=== PATIENT | female | born 1980 | race Caucasian/White ===

== ENCOUNTER 2016-07-24 03:35 | Emergency (ER) | payer MEDICAID ==
[~2016-07-24] VITALS: Ht 152.4 cm; Wt 65.5 kg
[2016-07-24 03:53] VITALS: BP 128/67
--- NOTE | 2016-07-24 05:05 | NUR ---
PT TAKEN TO BED 4
--- NOTE | 2016-07-24 05:10 | NUR ---
PATIENT PRESENTS TO ED WITH PAINFUL URINATION;STRANGE;LOW BACK PAIN X 2 DAYS . PT DENIES N/V/D; SKIN IS PINK/WARM/DRY; AAOX4 WITH EVEN AND STEADY GAIT; LUNGS CLEAR BL; HR EVEN AND REGULAR; PT DENIES ANY FEVER, CP, SOB, OR COUGH AT THIS TIME; PATIENT STATES PAIN OF 10/10 AT THIS TIME; VSS; PATIENT POSITIONED FOR COMFORT; HOB ELEVATED; BEDRAILS UP X2; BED DOWN. ER MD MADE AWARE OF PT STATUS.
--- NOTE | 2016-07-24 05:18 | NUR ---
Dr. Richmond evaluating patient at bedside.
[2016-07-24] MEDS ORDERED: KETOROLAC 60 MG/2 ML VIAL IM ONE (05:20)
[2016-07-24] MEDS ORDERED: PHENAZOPYRIDINE 100 MG TAB PO ONE (05:20)
[2016-07-24] MEDS ORDERED: SULFAMETH/TRIMETH DS 800/160MG 1 TAB PO ONE (05:20)
[2016-07-24 05:55] VITALS: BP 119/71
--- NOTE | 2016-07-24 05:55 | NUR ---
Patient discharged with v/s stable. Written and verbal after care instructions given and explained. Patient alert, oriented and verbalized understanding of instructions. Ambulatory with steady gait. All questions addressed prior to discharge. ID band removed. Patient advised to follow up with PMD. Rx of MOTRIN 800MG, PYRIDIUM 100MG, BACTRIM DS given. Patient educated on indication of medication including possible reaction and side effects. Opportunity to ask questions provided and answered.
== END 2016-07-24 05:55 | disposition home or self-care (01) ==
LOC: MED 03:35
DX: S39.012A Strain of muscle, fascia and tendon of lower back, initial encounter (principal); N39.0 Urinary tract infection, site not specified; R03.0 Elevated blood-pressure reading, without diagnosis of hypertension; X58.XXXA Exposure to other specified factors, initial encounter; Y93.89 Activity, other specified; Y92.89 Other specified places as the place of occurrence of the external cause; Y99.8 Other external cause status
CPT/HCPCS: 96372; 99283; J1885

== ENCOUNTER 2017-01-04 00:26 | Emergency (ER) | payer MEDICAID ==
[~2017-01-04] VITALS: Ht 162.6 cm; Wt 62.6 kg
[2017-01-04 00:33] VITALS: BP 122/79
--- NOTE | 2017-01-04 01:05 | NUR ---
PT TAKEN TO OF3
[2017-01-04 01:33] LABS: APPEARANCE,URINE CLEAR (CLEAR); BILIRUBIN,URINE NEGATIVE (NEGATIVE); BLOOD, URINE 3+ (NEGATIVE); COLOR,URINE YELLOW (YELLOW); LEUKOCYTE ESTERASE ,URINE 2+ (NEGATIVE); NITRITE, URINE NEGATIVE (NEGATIVE); UGLUCOSE NEGATIVE (NEGATIVE)
--- NOTE | 2017-01-04 01:45 | NUR ---
Dr. Wise evaluating patient
[2017-01-04 01:49] LABS: RBC,URINE TOO NUMEROUS TO COUN /HPF (0-5); WBC,URINE TOO MANY TO COUNT /HPF (0-5)
[2017-01-04] MEDS ORDERED: SULFAMETH/TRIMETH DS 800/160MG 1 TAB PO ONE (01:50)
[2017-01-04 02:00] VITALS: BP 122/63
--- NOTE | 2017-01-04 02:00 | NUR ---
Patient discharged with v/s stable. Written and verbal after care instructions given and explained. Patient alert, oriented and verbalized understanding of instructions. Ambulatory with steady gait. All questions addressed prior to discharge. ID band removed. Patient advised to follow up with PMD. Rx of Sung DS given. Patient educated on indication of medication including possible reaction and side effects. Opportunity to ask questions provided and answered.
== END 2017-01-04 02:00 | disposition home or self-care (01) ==
LOC: MED 00:26
DX: N39.0 Urinary tract infection, site not specified (principal)
CPT/HCPCS: 81001; 81025; 87086; 99284

== ENCOUNTER 2018-10-15 19:22 | Emergency (ER) | payer MEDICAID ==
[~2018-10-15] VITALS: Ht 162.6 cm; Wt 69.9 kg
[2018-10-15 19:28] VITALS: BP 117/70
--- NOTE | 2018-10-15 19:30 | NUR ---
TO LOBBY A/W BED , AMBULATORY
--- NOTE | 2018-10-15 19:33 | NUR ---
TO BED # 02 AMBULATORY
--- NOTE | 2018-10-15 19:35 | NUR ---
38 YO F BIB SELF AND PRESENTS TO ED C/O NAUSEA/VOMITING +20 IN THE PAST 4 HOURS. PT STATES SHE HAS HAD A STRANGE X 4 DAYS AND TOOK A NORCO X 4 HOURS AGO AND BEGAN TO VOMIT WITH EPIGASTRIC AND LOWER LEFT ABD PAIN. PT ALSO C/O SOME LOWER BACK TENDERNESS WITH URINARY DISCOMFORT. LAST BM WAS YESTERDAY AND PT STATES SHE WAS CONSTIPATED. LMP: BEGINNING OF SEPTEMBER. -- PT AWAKE, ALERT, CALM, COOPERATIVE. APPEARS UNCOMFORTABLE. DRY HEAVING. ANSWERING QUESTIONS APPROPRIATELY. BEHAVIOR AGE APPROPRIATE. -- SKIN PINK, WARM, DRY. BREATHING EVEN, UNLABORED. PMH-- PRE-HTN
--- NOTE | 2018-10-15 19:40 | NUR ---
URINE SAMPLE COLLECTED.
--- NOTE | 2018-10-15 20:30 | NUR ---
Patient appears to be resting comfortably in bed. Vital Signs within normal limits. Respirations even and unlabored. Awaiting MD orders.
[2018-10-15] MEDS ORDERED: KETOROLAC 15 MG/ML VIAL IVP ONE (21:05)
[2018-10-15] MEDS ORDERED: ONDANSETRON 4 MG/2 ML VIAL IVP ONE (21:05)
[2018-10-15] MEDS ORDERED: NACL 0.9% 1,000 ML IV ONE (21:05)
--- NOTE | 2018-10-15 21:30 | NUR ---
PT RECEIVED TORADOL 30 MG AND ZOFRAN 4 MG IVP. WILL CONTINUE TO MONITOR FOR EFFECTIVENESS.
--- NOTE | 2018-10-15 22:57 | NUR ---
Dr. Santillan examining patient.
[2018-10-15 22:59] VITALS: BP 119/74
== END 2018-10-15 22:59 | disposition home or self-care (01) ==
LOC: MED 19:22
DX: B34.9 Viral infection, unspecified (principal); R11.2 Nausea with vomiting, unspecified; R30.0 Dysuria; R10.32 Left lower quadrant pain; I10 Essential (primary) hypertension
CPT/HCPCS: 81002; 81025; 96361; 96374; 96375; 99283; J1885; J2405; J7030

== ENCOUNTER 2019-06-13 18:35 | Emergency (ER) | payer MEDICAID ==
[~2019-06-13] VITALS: Ht 162.6 cm; Wt 68.9 kg
[2019-06-13 18:43] VITALS: BP 128/84
--- NOTE | 2019-06-13 18:50 | NUR ---
FLU SWAB COLLECTED AND LEFT AT BEDSIDE
--- NOTE | 2019-06-13 18:51 | NUR ---
PT AMBULATED TO RESTROOM WITH STEADY GAIT
--- NOTE | 2019-06-13 18:54 | NUR ---
38 Y/O FEMALE C/O HEADACHE, N/V/, DYSURIA, SUPRAPUBIN PAIN X 2 DAYS. STATES SHE HAD FEVER AT HOME, TOOK IBUPROFEN 2 HRS AGO, AFEBRILE AT THIS TIME. STATES 7/10 ACHING PAIN TO HEAD. DENIES COUGH. RR EVEN AND UNLABORED. ABD SOFT, ROUND, NONTENDER TO PALP. PT POSITIONED IN BED FOR COMFORT. X 1 SIDE RAIL RAISED. VSS MEDHX: DENIES ALLERGIES: NKA
--- NOTE | 2019-06-13 19:18 | NUR ---
ASSUMED CARE. RECEIVED ALERT,ORIENTED. AFEBRILE, NOT IN ACUTE DISTRESS. COMPLAINS OF HEADACHE,SUPRAPUBIC AND LOWER BACK PAIN,NAUSEA,VOMITING, URINARY FREQUEDNCY. P.A. AT BEDSIDE TO EVALUATE PT.
[2019-06-13] MEDS: ONDANSETRON 4 MG ODT PO ONE (19:40)
[2019-06-13] MEDS: KETOROLAC 30 MG/ML VIAL IM ONE (19:41)
--- NOTE | 2019-06-13 19:41 | NUR ---
ZOFRAN 4 MG ODT AND TORADOL 30 MG IM GIVEN ORDERED.
--- NOTE | 2019-06-13 20:09 | NUR ---
PO FLUID CHALLENGE DONE. PT. ABLE TO TOLERATE 8 0Z OF WATER.
[2019-06-13] MEDS ORDERED: LIDOCAINE MPF 1% 5 ML ONE (20:50)
[2019-06-13] MEDS ORDERED: cefTRIAXone 1,000 MG VIAL ONE (20:50)
[2019-06-13] MEDS: ACETAMINOPHEN EXTRA STRENGTH 500 MG TAB PO ONE (20:55)
[2019-06-13] MEDS: cefTRIAXone 1,000 MG in LIDOCAINE MPF 1% 2.1 ML IM ONE (20:55)
--- NOTE | 2019-06-13 20:55 | NUR ---
PAIN BETTER (5/10). TYLENOL 1 GM PO AND ROCEPHIN 1 GM IM GIVEN ORDERED.
--- NOTE | 2019-06-13 21:25 | NUR ---
DISCHARGED STABLE AND IMPROVED. PRESCRIPTION,VERBAL AND WRITTEN AFTERCARE INSTRUCTIONS GIVEN. VERBALIZED UNDERSTANDING. LEFT AMBULATORY WITH STABLE GAIT.
[2019-06-13 21:28] VITALS: BP 115/62
== END 2019-06-13 21:25 | disposition home or self-care (01) ==
LOC: MED 18:35
DX: N39.0 Urinary tract infection, site not specified (principal); R51 Headache; R11.2 Nausea with vomiting, unspecified; I10 Essential (primary) hypertension; Z98.890 Other specified postprocedural states
CPT/HCPCS: 81002; 81025; 87804; 96372; 99284; J0696; J1885; J2001; Q0162

== ENCOUNTER 2022-01-17 18:47 | Emergency (ER) | payer MEDICAID ==
[~2022-01-17] VITALS: Ht 162.6 cm; Wt 75.7 kg
[2022-01-17 18:58] VITALS: BP 118/76
--- NOTE | 2022-01-17 20:22 | NUR ---
Dr. Santillan examining patient.
--- NOTE | 2022-01-17 20:38 | NUR ---
Patient did self swabs wet mount and sent to lab.
[2022-01-17] MEDS ORDERED: KETOROLAC 60 MG/2 ML VIAL IM ONE (20:45)
--- NOTE | 2022-01-17 21:04 | NUR ---
Dr. Santillan examining patient.
[2022-01-17] MEDS ORDERED: NAPR-54 PO (21:13)
[2022-01-17] MEDS ORDERED: METR-435 PO (21:13)
[2022-01-17 21:18] VITALS: BP 119/76
--- NOTE | 2022-01-17 21:18 | NUR ---
Patient discharged with v/s stable. Written and verbal after care instructions given and explained. Patient alert, oriented and verbalized understanding of instructions. Ambulatory with steady gait. All questions addressed prior to discharge. ID band removed. Patient advised to follow up with PMD. Rx of Naprosyn, Metronidazole given. Patient educated on indication of medication including possible reaction and side effects. Opportunity to ask questions provided and answered.
== END 2022-01-17 21:18 | disposition home or self-care (01) ==
LOC: MED 18:47
DX: N76.0 Acute vaginitis (principal); Z98.890 Other specified postprocedural states
CPT/HCPCS: 81002; 81025; 87210; 96372; 99283; J1885

== ENCOUNTER 2022-04-30 17:31 | Emergency (ER) | payer MEDICAID ==
[~2022-04-30] VITALS: Ht 162.6 cm; Wt 73.5 kg
[~2022-04-30 17:31] MED LIST: METR-435 PO; NAPR-54 PO
[2022-04-30 17:36] VITALS: BP 123/86
[2022-04-30 19:00] LABS: BASOPHILS % (AUTO) 0.4 % (0.0-2.0); EOSINOPHILS # (AUTO) 0.2 K/uL (0-0.4); EOSINOPHILS % (AUTO) 1.8 % (0.0-4.0); HEMATOCRIT 38.1 % (36-48); HEMOGLOBIN 13.5 g/dL (12.0-16.0); LYMPHOCYTES # (AUTO) 2.8 K/uL (2.5-16.5); MEAN CORPUSCULAR HEMOGLOBIN 31 pg (27-31); MEAN CORPUSCULAR HGB CONC 35 g/dL (33-37); MEAN CORPUSCULAR VOLUME 86.4 fL (80-94); MONOCYTES # (AUTO) 0.9 K/uL (0.8-1.0); MONOCYTES % (AUTO) 7.9 % (1.7-9.3); NEUTROPHILS # (AUTO) 6.9 K/uL (1.8-7.7); NEUTROPHILS % (AUTO) 63.9 % (42.2-75.2); PLATELET COUNT (AUTO) 199 K/uL (140-450); RED CELL DISTRIBUTION WIDTH 12.9 % (11.6-13.7); WHITE BLOOD COUNT (AUTO) 10.9 K/uL (4.8-10.8)
[2022-04-30 19:23] LABS: ALBUMIN 4.4 g/dL (3.4-5.0); CARBON DIOXIDE 28.8 mmol/L (21-32); CREATININE 0.7 mg/dL (0.6-1.3); POTASSIUM 3.8 mmol/L (3.5-5.1); TOTAL BILIRUBIN 0.2 mg/dL (0.0-1.0)
[2022-04-30 20:00] LABS: APPEARANCE,URINE CLOUDY (CLEAR); COLOR,URINE AMBER (YELLOW); LEUKOCYTE ESTERASE ,URINE 4+ (NEGATIVE); NITRITE, URINE POSITIVE (NEGATIVE)
[2022-04-30 20:01] LABS: UGLUCOSE NEGATIVE (NEGATIVE)
[2022-04-30 20:02] LABS: BLOOD, URINE 3+ (NEGATIVE); PH,URINE 6.5 (5.0-9.0)
[2022-04-30 20:03] LABS: BILIRUBIN,URINE NEGATIVE (NEGATIVE)
[2022-04-30 20:04] LABS: OTHER CASTS, URINE None Seen /LPF (None Seen); RBC,URINE 11-20 (MOD) /HPF (0-5); WBC,URINE 16-25 (MOD) /HPF (0-5); YEAST,URINE Few /HPF (None Seen)
[2022-04-30] MEDS ORDERED: CEPH-588 PO (20:35)
[2022-04-30] MEDS ORDERED: KETOROLAC 30 MG/ML VIAL IM ONE (20:35)
[2022-04-30] MEDS ORDERED: PHENAZOPYRIDINE 100 MG TAB PO ONE (20:35)
[2022-04-30] MEDS ORDERED: ACET-10509 PO (20:35)
[2022-04-30] MEDS ORDERED: PYR100 PO (20:35)
[2022-04-30] MEDS ORDERED: cefTRIAXone 500 MG in LIDOCAINE MPF 1% 1 ML IM ONE (20:35)
--- NOTE | 2022-04-30 20:35 | NUR ---
MEDICATED PER ERMDS ORDER, TOLERATED WELL.
[2022-04-30] MEDS ORDERED: cefTRIAXone 500 MG VIAL ONE (20:51)
[2022-04-30] MEDS ORDERED: LIDOCAINE MPF 1% 5 ML ONE (20:52)
[2022-04-30 22:15] VITALS: BP 123/86
--- NOTE | 2022-04-30 22:15 | NUR ---
Patient discharged with v/s stable. Written and verbal after care instructions given and explained. Patient alert, oriented and verbalized understanding of instructions. Ambulatory with steady gait. All questions addressed prior to discharge. ID band removed. Patient advised to follow up with PMD. Rx of TYLENOL, KEFLEX, PYRIDIUM given. Patient educated on indication of medication including possible reaction and side effects. Opportunity to ask questions provided and answered.
== END 2022-04-30 22:15 | disposition home or self-care (01) ==
LOC: MED 17:31
DX: N12 Tubulo-interstitial nephritis, not specified as acute or chronic (principal)
CPT/HCPCS: 36415; 74176; 80053; 81001; 83690; 85025; 87086; 96372; 99285; J0696; J1885; J2001